=== PATIENT | female | born 1995 | race Caucasian/White ===

== ENCOUNTER 2022-10-19 20:53 | Emergency (ER) | payer SELFPAY ==
[2022-10-19 22:00] VITALS: BP 105/57
[2022-10-19] MEDS ORDERED: LORTAB 1010 MG PO (22:31)
[2022-10-19 22:44] VITALS: BP 105/57
== END 2022-10-19 23:06 | disposition home or self-care (01) | DRG 563 ==
LOC: ED 20:53
DX: S93.492A Sprain of other ligament of left ankle, initial encounter (principal); W18.31XA Fall on same level due to stepping on an object, initial encounter; S92.355A Nondisplaced fracture of fifth metatarsal bone, left foot, initial encounter for closed fracture

== ENCOUNTER 2022-10-22 12:58 | Emergency (ER) | payer SELFPAY ==
[~2022-10-22 12:58] MED LIST: LORTAB 1010 MG PO
[2022-10-22 13:06] VITALS: BP 138/58
[2022-10-22 13:31] VITALS: BP 118/63
[2022-10-22 14:00] VITALS: BP 129/84
[2022-10-22] MEDS ORDERED: HYDROCO/APAP1 TA9 PO (14:16)
[2022-10-22 14:31] VITALS: BP 111/56
[2022-10-22 15:01] VITALS: BP 61/42
[2022-10-22 15:07] VITALS: BP 61/42
[2022-10-22] MEDS ORDERED: LORTAB 1010 MG PO ×2 (15:14→16:25)
[2022-10-31] MEDS ORDERED: LORTAB 1010 MG PO (11:11)
== END 2022-10-22 15:25 | disposition home or self-care (01) | DRG 563 ==
LOC: ED 12:58
DX: S92.355A Nondisplaced fracture of fifth metatarsal bone, left foot, initial encounter for closed fracture (principal)

== ENCOUNTER 2022-10-24 09:59 | Emergency (ER) | payer SELFPAY ==
[~2022-10-24] VITALS: Ht 162.6 cm; Wt 59.0 kg
[~2022-10-24 09:59] MED LIST changes: +HYDROCO/APAP1 TA9 PO
[2022-10-24] MEDS ORDERED: HYDROCO/APAP1 TA9 PO ×2 (13:54→19:05)
[2022-10-24 14:22] VITALS: BP 119/52
[2022-10-31] MEDS ORDERED: LORTAB 1010 MG PO (11:11)
== END 2022-10-24 14:22 | disposition home or self-care (01) | DRG 563 ==
LOC: ED 09:59
DX: S93.402A Sprain of unspecified ligament of left ankle, initial encounter (principal); S92.355A Nondisplaced fracture of fifth metatarsal bone, left foot, initial encounter for closed fracture; W18.31XA Fall on same level due to stepping on an object, initial encounter

== ENCOUNTER 2022-11-18 11:02 | Emergency (ER) | payer SELFPAY ==
[~2022-11-18] VITALS: Ht 162.6 cm; Wt 54.5 kg
[2022-11-18] MEDS ORDERED: NAPROXEN500 MG PO (11:32)
[2022-11-18] MEDS ORDERED: HYDROCO/APAP1 TA9 PO (12:44)
[2022-11-18 12:50] VITALS: BP 98/74
== END 2022-11-18 12:54 | disposition home or self-care (01) | DRG 563 ==
LOC: ED 11:02
PROC: 2W3TX1Z Immobilization of Left Foot using Splint (ICD-10-PCS; principal; 2022-11-18)
DX: S92.352A Displaced fracture of fifth metatarsal bone, left foot, initial encounter for closed fracture (principal); X50.9XXA Other and unspecified overexertion or strenuous movements or postures, initial encounter

== ENCOUNTER 2022-11-21 12:26 | Emergency (ER) | payer SELFPAY ==
[~2022-11-21] VITALS: Ht 162.6 cm; Wt 60.0 kg
[~2022-11-21 12:26] MED LIST changes: +NAPROXEN500 MG PO
[2022-11-21] MEDS ORDERED: TRAMADOL HYDROC50 M1 PO (15:07)
[2022-11-21 15:47] VITALS: BP 114/73
== END 2022-11-21 15:52 | disposition home or self-care (01) | DRG 563 ==
LOC: ED 12:26
DX: S92.352A Displaced fracture of fifth metatarsal bone, left foot, initial encounter for closed fracture (principal); X58.XXXA Exposure to other specified factors, initial encounter

== ENCOUNTER 2022-11-28 09:30 | Emergency (ER) | payer SELFPAY ==
[~2022-11-28] VITALS: Ht 162.6 cm; Wt 52.0 kg
[~2022-11-28 09:30] MED LIST changes: +TRAMADOL HYDROC50 M1 PO
[2022-11-28] MEDS ORDERED: NAPROXEN500 MG PO (11:26)
[2022-11-28 13:36] VITALS: BP 123/72
== END 2022-11-28 12:00 | disposition home or self-care (01) | DRG 561 ==
LOC: ED 09:30
DX: S92.902G Unspecified fracture of left foot, subsequent encounter for fracture with delayed healing (principal); W19.XXXD Unspecified fall, subsequent encounter

== ENCOUNTER 2022-12-03 10:42 | Emergency (ER) | payer SELFPAY ==
[~2022-12-03] VITALS: Ht 162.6 cm; Wt 56.7 kg
[2022-12-03] MEDS ORDERED: GABAPENTIN300 M2 PO (11:05)
[2022-12-03 11:17] VITALS: BP 117/74
== END 2022-12-03 11:30 | disposition home or self-care (01) | DRG 556 ==
LOC: ED 10:42
DX: M79.672 Pain in left foot (principal)